=== PATIENT | male | born 1965 | race Caucasian/White ===

== ENCOUNTER 2020-06-03 21:00 | Emergency (ER) | payer OTHER ==
[~2020-06-03] VITALS: Ht 182.9 cm; Wt 99.8 kg
[2020-06-03 21:31] VITALS: BP 156/104
--- NOTE | 2020-06-03 21:52 | NUR ---
CALLED RT FOR BREATHING TX
[2020-06-03] MEDS ORDERED: TDAP [DIPH/PERTUSSIS/TET] 0.5 ML VIAL IM ONE (21:56)
[2020-06-03] MEDS ORDERED: ACETAMINOPHEN ES 500 MG TABLET ONE (21:56)
[2020-06-03] MEDS ORDERED: CEPHALEXIN MONOHYDRATE 500 MG CAPSULE PO ONE (21:56)
[2020-06-03] MEDS: TDAP [DIPH/PERTUSSIS/TET] 0.5 ML VIAL IM ONE (22:03)
[2020-06-03] MEDS: CEPHALEXIN MONOHYDRATE 500 MG CAPSULE PO ONE (22:03)
[2020-06-03] MEDS: ACETAMINOPHEN ES 500 MG TABLET PO ONE (22:03)
--- NOTE | 2020-06-03 22:04 | NUR ---
DR WRIGHT AT [facility]
--- NOTE | 2020-06-03 22:04 | NUR ---
PT MEDICATED ORDERED
[2020-06-03] MEDS ORDERED: ALBUTEROL FS 2.5 MG/3 ML VIAL.NEB ONE (22:05)
--- NOTE | 2020-06-03 22:06 | NUR ---
RT AT BEDSIDE
[2020-06-03] MEDS: ALBUTEROL FS 2.5 MG/3 ML VIAL.NEB NEB ONE (22:08)
--- NOTE | 2020-06-03 22:49 | NUR ---
PT CLEARED FOR DISCHARGE PER DR. WRIGHT. PT RECEIVED DISCHARGE INSTRUCTIONS. PT VERBALIZED UNDERSTANING. PT IN [employer]. PT AMBULATORY WITH STEADY GAIT.
== END 2020-06-03 23:02 | disposition home or self-care (01) ==
LOC: ER 21:07
DX: S01.81XA Laceration without foreign body of other part of head, initial encounter (principal); I10 Essential (primary) hypertension; R51.9 Headache, unspecified; Y04.8XXA Assault by other bodily force, initial encounter; Y93.89 Activity, other specified; Y92.89 Other specified places as the place of occurrence of the external cause; Y99.8 Other external cause status
CPT/HCPCS: 70450; 90471; 90715; 94640; 99284; A6403